=== PATIENT | male | born 1990 | race Caucasian/White ===

== ENCOUNTER 2022-04-10 02:45 | Emergency (ER) | payer BC, OTHER ==
[2022-04-10 02:55] VITALS: TEMP 97.6
--- NOTE | 2022-04-10 04:03 | XR ---
EXAMINATION TYPE: XR foot complete RT DATE OF EXAM: 04/10/2022 COMPARISON: NONE HISTORY: Pain TECHNIQUE: 3 views FINDINGS: There is nondisplaced oblique fracture of the metatarsal on the lateral view there is appar ently the second metatarsal. There is nondisplaced transverse fracture across the base of the second metatarsal. There is soft tissue swelling. There is also likely a transverse fracture across the base of the second metatarsal. There is possible fracture longitudinally along the base of the fourth met atarsal. IMPRESSION: Metatarsal fractures. Soft tissue swelling. No displacement.
--- NOTE | 2022-04-10 04:37 | ED ---
Lower Extremity Injury HPI - General Chief Complaint: Extremity Injury, Lower Stated Complaint: Injury,Rt foot Time Seen by Provider: 04/10/22 04:31 Source: patient Mode of arrival: ambulatory - History of Present Illness Initial Comments: This patient is a 31-year-old man who states that he had been hanging upside down and then when he went to lower himself he landed awkwardly. He states that he struck the right foot and landed on it with it somewhat dorsiflexed. After that he noticed that he was developing swelling and was having pain when he attempted to bear weight. He denies loss of sensation or motor function throughout the foot. There were no other injuries. Patient declined analgesic at history and physical MD Complaint: foot injury Onset/Timin -: hour(s) Type of Injury: blunt, other (Dorsiflexion) Place: street/outdoors Severity: moderate Improves With: nothing Worsens With: weight bearing Context: other (As above) Associated Symptoms: swelling, able to partially bear weight - Related Data Previous Rx's Medication Instructions Recorded HYDROcodone/APAP 5-325MG [[place] 1 tab PO Q4HR PRN 3 Days #18 tab 04/10/22 5-325] Allergies Allergy/AdvReac Type Severity Reaction Status Date / Time No Known Allergies Allergy Verified 04/10/22 02:55 Review of Systems ROS Statement: Those systems with pertinent positive or pertinent negative responses have been documented in the HPI. ROS Other: All systems not noted in ROS Statement are negative. Musculoskeletal: Reports: as per HPI, joint swelling, arthralgia Skin: Denies: lesions Neurological: Denies: weakness, numbness, paresthesias Past Medical History Past Medical History: No Reported History History of Any Multi-Drug Resistant Organisms: None Reported Additional Past Surgical History / Comment(s): left ankle Past Psychological History: Anxiety, Depression Smoking Status: Current every day smoker Past Alcohol Use History: Daily Past Drug Use History: Marijuana General Exam General appearance: alert, in no apparent distress Cardiovascular Exam: Present: other (The dorsalis pedis pulse and posterior tibialis pulses normal. throughout the foot There is normal capillary refill.) Right Knee exam: Present: normal inspection, full ROM. Absent: tenderness, swelling Lower Leg exam: Present: normal inspection, full ROM. Absent: tenderness, swelling Ankle exam: Present: normal inspection, full ROM. Absent: tenderness, swelling Foot/Toe exam: Present: tenderness, swelling, ecchymosis. Absent: full ROM, abrasion, laceration, deformity, crepitus, dislocation, erythema, amputation, calcaneal tenderness, tenderness at base of 5th metatarsal Neurovascular tendon exam: Present: no vascular compromise. Absent: pulse deficit, abnormal cap refill, motor deficit, sensory deficit, tendon deficit Neurological exam: Present: alert. Absent: motor sensory deficit (Throughout the right foot) Skin exam: Present: warm, dry, intact, normal color. Absent: rash Course Vital Signs 04/10/22 04/10/22 02:50 06:24 Temperature 97.6 F 97.6 F Pulse Rate 110 H 103 H Respiratory 20 19 Rate Blood Pressure 140/96 125/86 O2 Sat by Pulse 100 98 Oximetry Medical Decision Making - Medical Decision Making Patient is 31-year-old man who does appear to have fractures at the base of the metatarsals of the right foot. The patient is splinted here and discussed appropriate further care and follow-up also detailed return parameters. Disposition Clinical Impression: Metatarsal fracture Disposition: HOME SELF-CARE Condition: Good Instructions (If sedation given, give patient instructions): Foot Fracture in Adults (ED) Prescriptions: HYDROcodone/APAP 5-325MG [[place] 5-325] 1 tab PO Q4HR PRN 3 Days #18 tab PRN Reason: Pain Is patient prescribed a controlled substance at d/c from ED?: Yes When asked, does pt state using other controlled substances?: No If prescribed controlled substance>3 days was MAPS reviewed?: Prescribed <3 Days If opioid is for acute pain is fill amount 7 days or less?: Yes If Rx opioid, was Start Talking consent form obtained?: Yes Referrals: Duran Krause Jr, DO [Primary Care Provider] - 1-2 days Moon Jones DO [Doctor of Osteopathic Medicine] - 1-2 days
[2022-04-10 06:25] VITALS: BP 125/86; PULSE 103; RESP 19
== END 2022-04-10 06:22 | disposition home or self-care (01) ==
LOC: EC 02:45
DX: S92.302A Fracture of unspecified metatarsal bone(s), left foot, initial encounter for closed fracture (principal); F17.200 Nicotine dependence, unspecified, uncomplicated; W01.0XXA Fall on same level from slipping, tripping and stumbling without subsequent striking against object, initial encounter

== ENCOUNTER → 2022-04-14 | Outpatient (CLI) | payer SELFPAY ==
--- NOTE | 2022-04-14 07:38 | CT ---
EXAMINATION TYPE: CT foot RT wo con, CT ankle RT wo con CT DLP: 236.90 (accession [id number]), 244.10 (accession [id number]) mGycm, Automated exposure control fo r dose reduction was used. DATE OF EXAM: 04/14/2022 7:19 AM COMPARISON: Right foot radiograph 04/02/2022. CLINICAL INDICATION:Male, 31 years old with history of S92.324A closed nondisplaced fx; PHH, Closed n on displaced fracture right foot (accession [id number]), Ankle pain (accession [id number]) TECHNIQUE: Axial images were obtained of the right foot and ankle without the use of IV contrast. Ad ditional coronal and sagittal reformatted images and soft tissue and bone window were obtained for re view. 3-D reconstruction was created on a separate workstation. FINDINGS: Nondisplaced vertical fracture through the posterior malleolus of the tibia extending into the ankle joint. Nondisplaced oblique comminuted fracture of the second metatarsal shaft extending to wards the base. Nondisplaced fracture of the intermediate cuneiform. Nondisplaced comminuted fracture of the base of the fourth metatarsal. There is subcutaneous edema around the ankle joint and dorsum of the foot. No joint dislocations. No radiopaque foreign bodies. IMPRESSION: Nondisplaced fractures of the posterior malleolus of the tibia, second and fourth metatarsals, and in termediate cuneiform.
== END | disposition home or self-care (01) ==
LOC: RADCTMAIN 06:34
PROVIDERS: ATTEND Student in an Organized Health Care Education/Training Program
DX: S82.54XA Nondisplaced fracture of medial malleolus of right tibia, initial encounter for closed fracture (principal); S92.324A Nondisplaced fracture of second metatarsal bone, right foot, initial encounter for closed fracture; S92.344A Nondisplaced fracture of fourth metatarsal bone, right foot, initial encounter for closed fracture

== ENCOUNTER 2023-10-26 23:14 | Emergency (ER) | payer OTHER ==
[2023-10-26] MEDS: SODIUM CHLORIDE 0.9% 500 ML 500 ML IV STA (23:41)
[2023-10-26 23:59] LABS: Basophils % (A) 0 %; Eosinophils % (A) 0 %; HCT 44.6 % (39.0-53.0); HGB 15.2 gm/dL (13.0-17.5); Lymphocytes # (A) 2.3 k/uL (1.0-4.8); Lymphocytes % (A) 25 %; MCH 32.6 pg (25.0-35.0); MCV 95.7 fL (80.0-100.0); Mean Platelet Volume 7.6; Monocytes # (A) 0.6 k/uL (0-1.0); Monocytes % (A) 6 %; Neutrophils # (A) 5.9 k/uL (1.3-7.7); Neutrophils % (A) 66 %; Platelet Count 265 k/uL (150-450); RBC 4.66 m/uL (4.30-5.90); RDW 11.8 % (11.5-15.5)
[2023-10-27 00:10] LABS: ALT 76 U/L (4-49); AST 54 U/L (17-59); Acetaminophen <10.0 ug/mL; African American GFR (CKD) >90 (>60 ml/min/1.73 sqM); Albumin 4.6 g/dL (3.5-5.0); Alcohol <10 mg/dL; Alkaline Phosphatase 68 U/L (38-126); Anion Gap 18 mmol/L; Blood Urea Nitrogen 10 mg/dL (9-20); Carbon Dioxide 14 mmol/L (22-30); Chloride 104 mmol/L (98-107); Glucose 100 mg/dL (74-99); Magnesium 2.3 mg/dL (1.6-2.3); Non-African American GFR(CKD) 81 (>60 ml/min/1.73 sqM); Potassium 4.1 mmol/L (3.5-5.1); Salicylate <1.0 mg/dL; Sodium 136 mmol/L (137-145); Total Bilirubin 0.5 mg/dL (0.2-1.3); Total Protein 7.6 g/dL (6.3-8.2)
--- NOTE | 2023-10-27 00:15 | CT ---
EXAMINATION TYPE: CT brain wo con DATE OF EXAM: 10/26/2023 COMPARISON: None. HISTORY: SEIZURE CT DLP: 1183.4 mGycm. Automated Exposure Control for Dose Reduction was Utilized. TECHNIQUE: CT scan of the head is performed without contrast. FINDINGS: There is no acute intracranial hemorrhage, mass effect, or midline shift identified. The ventricles and sulci are within normal limits in size. Santana-white matter differentiation is maintai adelina. Age-indeterminate suspected old fracture medial wall right orbit. Paranasal sinuses are grossly clear. IMPRESSION: No acute intracranial hemorrhage, mass effect, or midline shift is seen.
[2023-10-27 00:56] LABS: Cocaine Screen,Urine Detected (NotDetected); Opiate Screen,Urine Not Detected (NotDetected); Phencyclidine Screen,Urine Not Detected (NotDetected); Urn Cannabinoid Scrn Not Detected (NotDetected)
[2023-10-27 00:57] LABS: Amphetamine Screen,Urine Not Detected (NotDetected); Barbiturate Screen,Urine Not Detected (NotDetected); Benzodiazepines Screen,Urine Detected (NotDetected); Methadone Screen, Urine Not Detected (NotDetected); Oxycodone Screen, Urine Not Detected (NotDetected); Tricyclic Antidepressant,Urine Not Detected (NotDetected)
[2023-10-27 01:17] LABS: Appearance,Urine Clear (Clear); Bilirubin,Urine Negative (Negative); Blood,Urine Negative (Negative); Color,Urine Light Yellow; Glucose,Urine (UA) Negative (Negative); Ketones,Urine 1+ (Negative); Leukocyte Esterase,Urine Negative (Negative); Nitrite,Urine Negative (Negative); Protein,Urine Trace (Negative); Urobilinogen,Urine <2.0 mg/dL (<2.0)
--- NOTE | 2023-10-27 01:55 | ED ---
General Adult HPI - General Chief complaint: Seizure Stated complaint: Seizure activity Time Seen by Provider: 10/26/23 23:18 Source: patient Mode of arrival: EMS - History of Present Illness Initial comments: 32-year-old male presented to the ED with a chief complaint of seizure. Patient has no history of seizures and is otherwise healthy. States prior to this episode was seeing flashing lights for approximately a minute. Patient then had a seizure. This was witnessed by his significant other. Reports that the seizure lasted approximately 2 minutes and returned to his normal self within the next 30 minutes. At this time he is back to his normal self. No chest pain shortness of breath or any other complaints at this time. - Related Data Previous Rx's Medication Instructions Recorded HYDROcodone/APAP 5-325MG [[place] 1 tab PO Q4HR PRN 3 Days #18 tab 04/10/22 5-325] Allergies Allergy/AdvReac Type Severity Reaction Status Date / Time No Known Allergies Allergy Verified 10/26/23 23:15 Review of Systems ROS Statement: Those systems with pertinent positive or pertinent negative responses have been documented in the HPI. ROS Other: All systems not noted in ROS Statement are negative. Past Medical History Past Medical History: No Reported History History of Any Multi-Drug Resistant Organisms: None Reported Additional Past Surgical History / Comment(s): left ankle Past Psychological History: Anxiety, Depression Smoking Status: Current every day smoker Past Alcohol Use History: Daily Past Drug Use History: Marijuana General Exam General appearance: alert, in no apparent distress Head exam: Present: atraumatic, normocephalic, other (No mills signs or raccoon's eyes.) Eye exam: Present: PERRL, EOMI ENT exam: Present: normal exam, other (Small laceration on the tongue) Neck exam: Present: normal inspection Respiratory exam: Present: normal lung sounds bilaterally Cardiovascular Exam: Present: regular rate, normal rhythm GI/Abdominal exam: Present: soft Back exam: Present: normal inspection Neurological exam: Present: alert, oriented X3 Skin exam: Present: warm, dry Course Vital Signs 10/26/23 23:16 Pulse Rate 97 Respiratory 20 Rate Blood Pressure 126/89 O2 Sat by Pulse 97 Oximetry Medical Decision Making - Medical Decision Making Was pt. sent in by a medical professional or institution (, PA, TEACHER SELECTION SPECIALIST, urgent care, hospital, or group home...) When possible be specific @ -No Did you speak to anyone other than the patient for history (EMS, parent, family, police, friend...)? What history was obtained from this source @ -No Did you review nursing and triage notes (agree or disagree)? Why? @ -I reviewed and agree with nursing and triage notes Were old charts reviewed (outside hosp., previous admission, EMS record, old EKG, old radiological studies, urgent care reports/EKG's, group home records)? Report findings @ -No old charts were reviewed Differential Diagnosis (chest pain, altered mental status, abdominal pain women, abdominal pain men, vaginal bleeding, weakness, fever, dyspnea, syncope, headache, dizziness, GI bleed, back pain, seizure, CVA, palpatations, mental health, musculoskeletal)? @ -Differential Seizure: Recurrent seizure disorder, febrile seizure, alcohol withdrawal, stimulants, meningitis, encephalitis, intercranial hemorrhage, intracranial tumor, stroke, eclampsia, thyrotoxicosis, hypocalcemia, hyponatremia, hypernatremia, hypomagnesemia, psychogenic, this is not meant to be an all-inclusive list. EKG interpreted by me (3pts min.). @ -EKG interpreted by me showing a sinus rhythm with nonspecific findings at a rate of 77 bpm. WI 148, QRS 89, QT/QTc 340/380. X-rays interpreted by me (1pt min.). @ -None done CT interpreted by me (1pt min.). @ -CT brain interpreted by me revealing no acute finding. U/S interpreted by me (1pt. min.). @ -None done What testing was considered but not performed or refused? (CT, X-rays, U/S, labs)? Why? @ -None What meds were considered but not given or refused? Why? @ -None Did you discuss the management of the patient with other professionals (professionals i.e. , PA, TEACHER SELECTION SPECIALIST, lab, RT, psych nurse, social media community manager, animal feeder, teacher, forward air controller/air officer, case finishing machine adjuster)? Give summary @ -No Was smoking cessation discussed for >3mins.? @ -No Was critical care preformed (if so, how long)? @ -No Were there social determinants of health that impacted care today? How? (Homelessness, low income, unemployed, alcoholism, drug addiction, transportation, low edu. Level, literacy, decrease access to med. care, halfway, rehab)? @ -No Was there de-escalation of care discussed even if they declined (Discuss DNR or withdrawal of care, Hospice)? DNR status @ -No What co-morbidities impacted this encounter? (DM, HTN, Smoking, COPD, CAD, Canc er, CVA, ARF, Chemo, Hep., AIDS, mental health diagnosis, sleep apnea, morbid obesity)? @ -None Was patient admitted / discharged? Hospital course, mention meds given and route, prescriptions, significant lab abnormalities, going to OR and other pertinent info. @ -Discharge 32-year-old male who is otherwise healthy with no history of seizures presents to the ED with a chief complaint of seizure. On examination does have intraoral trauma with laceration to the tongue. Per patient's spouse, symptoms do seem consistent with a seizure. Laboratory studies reviewed. CBC unremarkable. Chemistry panel largely unremarkable. Lactic acid elevated at 10.4, consistent with seizure. UA unremarkable. Urine tox screen is positive for benzodiazepines and cocaine. Alcohol less than 10. Serology panel unremarkable. Patient discharged home with referral to see neurology. Discussed seizure precautions including no driving or operating heavy machinery. Discussed strict return precautions with patient's significant other who verbalized agreement. Undiagnosed new problem with uncertain prognosis? @ -No Drug Therapy requiring intensive monitoring for toxicity (Heparin, Nitro, Insulin, Cardizem)? @ -No Were any procedures done? @ -No Diagnosis/symptom? @ -Seizure Acute, or Chronic, or Acute on Chronic? @ -Acute Uncomplicated (without systemic symptoms) or Complicated (systemic symptoms)? @ -Complicated Side effects of treatment? @ -No Exacerbation, Progression, or Severe Exacerbation? @ -No Poses a threat to life or bodily function? How? (Chest pain, USA, NC, pneumonia, PE, COPD, DKA, ARF, appy, cholecystitis, CVA, Diverticulitis, Homicidal, Suicidal, threat to staff... and all critical care pts) @ -Unlikely - Lab Data Result diagrams: 10/26/23 23:30 10/26/23 23:30 Lab Results 10/26/23 10/26/23 10/26/23 Range/Units 23:30 23:30 23:30 WBC 9.0 (3.8-10.6) k/uL RBC 4.66 (4.30-5.90) m/uL Hgb 15.2 (13.0-17.5) gm/dL Hct 44.6 (39.0-53.0) % MCV 95.7 (80.0-100.0) fL MCH 32.6 (25.0-35.0) pg MCHC 34.0 (31.0-37.0) g/dL RDW 11.8 (11.5-15.5) % Plt Count 265 (150-450) k/uL MPV 7.6 Neutrophils % 66 % Lymphocytes % 25 % Monocytes % 6 % Eosinophils % 0 % Basophils % 0 % Neutrophils # 5.9 (1.3-7.7) k/uL Lymphocytes # 2.3 (1.0-4.8) k/uL Monocytes # 0.6 (0-1.0) k/uL Eosinophils # 0.0 (0-0.7) k/uL Basophils # 0.0 (0-0.2) k/uL Sodium 136 L (137-145) mmol/L Potassium 4.1 (3.5-5.1) mmol/L Chloride 104 (98-107) mmol/L Carbon Dioxide 14 L (22-30) mmol/L Anion Gap 18 mmol/L BUN 10 (9-20) mg/dL Creatinine 1.19 (0.66-1.25) mg/dL Est GFR (CKD-EPI)AfAm >90 (>60 ml/min/1.73 sqM) Est GFR (CKD-EPI)NonAf 81 (>60 ml/min/1.73 sqM) Glucose 100 H (74-99) mg/dL Plasma Lactic Acid Drake 10.4 H* (0.7-2.0) mmol/L Calcium 10.0 (8.4-10.2) mg/dL Magnesium 2.3 (1.6-2.3) mg/dL Total Bilirubin 0.5 (0.2-1.3) mg/dL AST 54 (17-59) U/L ALT 76 H (4-49) U/L Alkaline Phosphatase 68 (38-126) U/L Total Protein 7.6 (6.3-8.2) g/dL Albumin 4.6 (3.5-5.0) g/dL Urine Color Urine Appearance (Clear) Urine pH (5.0-8.0) Ur Specific [place] (1.001-1.035) Urine Protein (Negative) Urine Glucose (UA) (Negative) Urine Ketones (Negative) Urine Blood (Negative) Urine Nitrite (Negative) Urine Bilirubin (Negative) Urine Urobilinogen (<2.0) mg/dL Ur Leukocyte Esterase (Negative) Salicylates <1.0 mg/dL Urine Opiates Screen (NotDetected) Ur Oxycodone Screen (NotDetected) Urine Methadone Screen (NotDetected) Acetaminophen <10.0 ug/mL Ur Barbiturates Screen (NotDetected) U Tricyclic Antidepress (NotDetected) Ur Phencyclidine Scrn (NotDetected) Ur Amphetamines Screen (NotDetected) U Methamphetamines Scrn (NotDetected) U Benzodiazepines Scrn (NotDetected) Urine Cocaine Screen (NotDetected) U Marijuana (THC) Screen (NotDetected) Serum Alcohol <10 mg/dL Influenza Type A (PCR) (Not Detectd) Influenza Type B (PCR) (Not Detectd) RSV (PCR) (Not Detectd) SARS-CoV-2 (PCR) (Not Detectd) 10/26/23 10/27/23 10/27/23 Range/Units 23:41 00:30 00:30 WBC (3.8-10.6) k/uL RBC (4.30-5.90) m/uL Hgb (13.0-17.5) gm/dL Hct (39.0-53.0) % MCV (80.0-100.0) fL MCH (25.0-35.0) pg MCHC (31.0-37.0) g/dL RDW (11.5-15.5) % Plt Count (150-450) k/uL MPV Neutrophils % % Lymphocytes % % Monocytes % % Eosinophils % % Basophils % % Neutrophils # (1.3-7.7) k/uL Lymphocytes # (1.0-4.8) k/uL Monocytes # (0-1.0) k/uL Eosinophils # (0-0.7) k/uL Basophils # (0-0.2) k/uL Sodium (137-145) mmol/L Potassium (3.5-5.1) mmol/L Chloride (98-107) mmol/L Carbon Dioxide (22-30) mmol/L Anion Gap mmol/L BUN (9-20) mg/dL Creatinine (0.66-1.25) mg/dL Est GFR (CKD-EPI)AfAm (>60 ml/min/1.73 sqM) Est GFR (CKD-EPI)NonAf (>60 ml/min/1.73 sqM) Glucose (74-99) mg/dL Plasma Lactic Acid Drake (0.7-2.0) mmol/L Calcium (8.4-10.2) mg/dL Magnesium (1.6-2.3) mg/dL Total Bilirubin (0.2-1.3) mg/dL AST (17-59) U/L ALT (4-49) U/L Alkaline Phosphatase (38-126) U/L Total Protein (6.3-8.2) g/dL Albumin (3.5-5.0) g/dL Urine Color Light Yellow Urine Appearance Clear (Clear) Urine pH 6.0 (5.0-8.0) Ur Specific [place] 1.020 (1.001-1.035) Urine Protein Trace H (Negative) Urine Glucose (UA) Negative (Negative) Urine Ketones 1+ H (Negative) Urine Blood Negative (Negative) Urine Nitrite Negative (Negative) Urine Bilirubin Negative (Negative) Urine Urobilinogen <2.0 (<2.0) mg/dL Ur Leukocyte Esterase Negative (Negative) Salicylates mg/dL Urine Opiates Screen Not Detected (NotDetected) Ur Oxycodone Screen Not Detected (NotDetected) Urine Methadone Screen Not Detected (NotDetected) Acetaminophen ug/mL Ur Barbiturates Screen Not Detected (NotDetected) U Tricyclic Antidepress Not Detected (NotDetected) Ur Phencyclidine Scrn Not Detected (NotDetected) Ur Amphetamines Screen Not Detected (NotDetected) U Methamphetamines Scrn Not Detected (NotDetected) U Benzodiazepines Scrn Detected H (NotDetected) Urine Cocaine Screen Detected H (NotDetected) U Marijuana (THC) Screen Not Detected (NotDetected) Serum Alcohol mg/dL Influenza Type A (PCR) Not Detected (Not Detectd) Influenza Type B (PCR) Not Detected (Not Detectd) RSV (PCR) Not Detected (Not Detectd) SARS-CoV-2 (PCR) Not Detected (Not Detectd) Disposition Clinical Impression: Seizure Disposition: HOME SELF-CARE Condition: Good Instructions (If sedation given, give patient instructions): New-Onset Seizure in Adults (ED) Additional Instructions: Please return to the Emergency Department if symptoms worsen or any other concerns. Please follow-up with your PCP and neurology. Is patient prescribed a controlled substance at d/c from ED?: No Referrals: Chaparro Mathews MD [Primary Care Provider] - 1-2 days Luiz Oh MD [STAFF PHYSICIAN] - 1-2 days Time of Disposition: 01:59
[2023-10-27 02:24] VITALS: BP 127/82; PULSE 79; RESP 18; TEMP 98.9
== END 2023-10-27 02:14 | disposition home or self-care (01) ==
LOC: EC 23:14
DX: S01.512A Laceration without foreign body of oral cavity, initial encounter (principal); R56.9 Unspecified convulsions; F17.200 Nicotine dependence, unspecified, uncomplicated; F12.90 Cannabis use, unspecified, uncomplicated; Z86.59 Personal history of other mental and behavioral disorders; Z20.822 Contact with and (suspected) exposure to COVID-19; X58.XXXA Exposure to other specified factors, initial encounter
CPT/HCPCS: 36415; 70450; 80053; 80143; 80179; 80306; 80320; 81003; 83605; 83735; 85025; 87636; 93005; 96360; 96361; 99285

== ENCOUNTER 2024-03-07 06:47 | Day surgery (SDC) | payer OTHER ==
[2024-03-05 11:37] VITALS: BMI 23.6
[2024-03-07] MEDS: IV FLUID CONTINUATION 1,000 ML IV ONE (07:07)
[2024-03-07 07:11] VITALS: TEMP 98
[2024-03-07] MEDS: LACTATED RINGERS 1,000 ML IV SCH (07:16)
[2024-03-07] MEDS ORDERED: PROPOFOL 10 MG/ML 20 ML VIAL IV ONE (07:35)
[2024-03-07] MEDS ORDERED: LIDOCAINE 2% (PF) 20 MG/ML 5 ML VIAL ONE (07:35)
[2024-03-07] MEDS ORDERED: fentaNYL (PF) 50 MCG/ML 2 ML AMP ONE (07:35)
--- NOTE | 2024-03-07 07:44 | P.OP ---
Date of Procedure: 03/07/24 Preoperative Diagnosis: Epigastric abdominal pain Postoperative Diagnosis: Gastritis Procedure(s) Performed: EGD Anesthesia: MAC Surgeon: Danilo Majano Pathology: other (Antrum) Condition: stable Disposition: PACU Description of Procedure: The patient was placed on the endoscopy table in the lateral position. He received IV sedation. The gas was placed oropharynx passed in the esophagus and stomach. Scope was then placed through the pylorus. The first and second portion of the duodenum appeared normal. Scope was then brought back to the antrum this appeared mildly flayed. A biopsy was performed. The scope was then retroflexed and the Mainer of the stomach appeared normal. The GE junction was at 40 cm. There is no significant hiatal hernia. The distal esophagus appeared normal. The proximal esophagus appeared normal. Scope withdrawn for the patient.
[2024-03-07 08:06] VITALS: BP 128/91; PULSE 74; RESP 16
== END 2024-03-07 08:18 | disposition home or self-care (01) ==
LOC: ORWHC2ENDO 06:47
PROVIDERS: ATTEND Surgery
DX: K29.50 Unspecified chronic gastritis without bleeding (principal); K21.9 Gastro-esophageal reflux disease without esophagitis
CPT/HCPCS: 88305; 43239; J3010; J2704; J2001